=== PATIENT | female | born 1985 | race Asian ===

== ENCOUNTER 2018-08-11 03:50 | Inpatient (IN) | payer OTHER ==
--- NOTE | 2018-08-11 04:47 | PN ---
Progress Note - Progress Note Date of Service: 08/11/18 Note: S: at 40 4/7 weeks c/o UCs that began about 2100 last night. Reports dribbling of fluid and unsure if her water has broken. O: B/P 109/65, P: 85, R: 18, T: 98.4 FHR: baseline 125, moderate variability + accelerations, occasional variable decelerations with UCs UC: q 6-10 min, mild to palpation No LOF with cough, ROM+ collected VE: vertex 2.5/70/-2 A: IUP at 40 4/7 weeks Category II FHR, doubt metabolic acidemia GBS negative Early active labor vs false labor P: Will determine ROM Encouraged position changes, fluids to see if variable decelerations resolve Reassess in 1-2 hours or sooner as needed
--- NOTE | 2018-08-11 05:21 | HP ---
General Information - Reason for Visit at 40 w 4 d with contractions - General Information Maternal Age: 33 Grav: 1 Para: 0 SAB: 0 IEA: 0 Estimated Due Date: 08/07/18 Determined By: LMP Maternal Blood Type and Rh: B Positive - Results this Serology/RPR Result: Non-Reactive Rubella Result: Immune HBsAg Result: Negative HIV Result: Negative GBS Culture Result: Negative Past Medical History Delivery History Comment: No prior delivery history Pertinent Past Medical History: Non-Contributory Pertinent Past Surgical History: See Records Past Surgical History Comment: [place] Teeth Extraction Pertinent Family History: See Records Family History Comment: Mother: Breast Cancer - Antepartal Records Antepartal Records: Reviewed, Uncomplicated Review of Systems Constitutional: Uncomfortable CV Complaint: No Respiratory: Shortness of Breath: No Gastrointestinal: No Nausea/Vomiting, Soft Stool Genitourinary: Leaking Fluid, No Dysuria, No Bleeding Musculoskeletal: No Epigastric Pain, Contractions Neurological: No Headache, No Visual Changes Movement: Normal Exam Allergies/Adverse Reactions: Allergies Penicillins Allergy (Verified 08/11/18 05:14) Hives B/P: 109/65, P: 85, R: 18, T: 98.4 Lab Values - Entire Visit: Laboratory Tests 08/11/18 04:25 Vag Amniotic Fld Detect Positive - Measurements Height: 5 ft 3 in Weight: 153 lb Weight in lbs: 153.744889 Body Mass Index (BMI): 27.1 Pre- Weight: 120 lb Weight Gained This : 33 lbs and 0 ozs - Exam Breast: Breast Exam Deferred CVA: No CVA Tenderness Extremities: No Edema Heart: Normal Rhythm/Heart Sounds HEENT: No Significant Findings Lungs: Clear Bilaterally Reflexes: DTR 2+ Targeted Exam Findings See L&D Outpatient Visit Provider Note for Findings: Yes Estimated Weight: 7.5 lb by raphael's Cervical Exam: 2cm, 3cm Effacement: 70% Station: -2 Presenting Part: Vertex Membrane Status: SROM Amniotic Fluid Evaluation: Positive ROM Plus Bleeding/Discharge: None EFM Findings - External Monitor Findings Baseline Heart Rate: 125 External Monitor Findings: Accelerations Present, Variability Moderate, Baseline Stable External Monitor Findings Comment: occ variable decelerations initially, resolved with position change Contractions: 45-90 Seconds Contraction Frequency: q 6-10 min Assessment/Plan - Assessment A: IUP at 40 4/7 weeks Category II FHR, doubt metabolic acidemia SROM at 2300 on 08/10/18 of clear fluid GBS negative P: Admit to L&D Will monitor labor progress, prefers not to be offered pain medication. Encouraged position changes, tub, rest, and frequent emptying of bladder Reassess in 3-4 hours or sooner as needed Anticipate SVB - Plan Plan: Admit - Anticipate Vaginal Delivery - Date/Time of Admission Date of Admission: 08/11/18 Time of Admission: 05:00
[2018-08-11] MEDS ORDERED: Buffered Lidocaine 1% SYRIN* 1 ML/SYRINGE INTRADERM ONE (06:01)
[2018-08-11] MEDS ORDERED: Lactated Ringers 1000 ML Bag* 1,000 ML IV ONE (06:01)
[2018-08-11] MEDS ORDERED: Lactated Ringers 1000 ML Bag* 1,000 ML IV SCH ×2 (07:00→23:00)
--- NOTE | 2018-08-11 07:53 | PN ---
Progress Note - Progress Note Date of Service: 08/11/18 Note: S: Feels as though UCs have spaced out some, sleeping in between O: B/P: 89/49, P: 74, R: 18, T:98.4 FHR: baseline 130, moderate variability, + accelerations, one variable deceleration and one uniform decel but toco not applied at time of auscultation UCs: Irregular A: IUP at 40 4/7 weeks Category II FHR Inadequate contraction pattern P: Patient in left side-lying position, will monitor FHR and UCs to assess labor and FHR Discussed recommendation to draw labs and initiate IV access, pt declines at this time Reassess in 30-60 mins or sooner as needed
--- NOTE | 2018-08-11 09:15 | PN ---
Progress Note - Progress Note Date of Service: 08/11/18 SOAP: Subjective: Pt reports she is feeling comfortable. Does feel some contractions, but mild and irregular, others she does not feel. Pt with a strong preference to avoid interventions. Declined an IV earlier Objective: FHR exhibiting deep variable/ sometimes borderline late decelerations with most contractions. Baseline 130/ + accels/ moderate variability. UCs 3-8 minutes, 40-90 seconds Had been leaking some clear fluid, none noted recently Afebrile Assessment: 33 year old at 40 4/7 weeks gestation with prelabor rupture of membranes, not in active labor, with Category II tracing suggestive of cord compression. Improves somewhat with repositioning, but does not resolve altogether. Membrane rupture likely suggestive of high leak. Plan: Pt agrees to IV access. Will establish IV and administer IV fluid bolus. If we can get FHR stabilized, will recommend augmentation of labor with Pitocin. If decelerations continue, will consult with .
[2018-08-11 09:20] LABS: ABS Basophils 0 10^3/ul (0-0.2); ABS Eosinophils 0.1 10^3/ul (0-0.6); ABS Lymphocytes 1.3 10^3/ul (1.0-4.8); ABS Monocytes 0.4 10^3/ul (0-0.8); ABS Nucleated RBC 0 10^3/ul; Eosinophil % 0.5 %; Hematocrit 40 % (33-41); Hemoglobin 13.5 g/dL (12.0-16.0); Lymphocyte % 9.8 %; Mean Corpuscular HGB Conc 34 g/dL (31-36); Mean Corpuscular Hemoglobin 32 pg (27-31); Mean Corpuscular Volume 94 fL (80-97); Nucleated Red Blood Cells % 0; Platelet Count 190 10^3/uL (150-450); Red Blood Count 4.24 10^6 /uL (3.70-4.87); Red Cell Distribution Width 14 % (10.5-15); White Blood Count 12.9 10^3/uL (3.5-10.8)
--- NOTE | 2018-08-11 12:07 | PN ---
Progress Note - Progress Note Date of Service: 08/11/18 SOAP: Subjective: Pt reports ctx feel more frequent at this time, but are still quite mild. She is comfortable physically, states she feels more awake. Objective: FHR: Baseline 140, + accelerations, moderate variability, variable and early decelerations with some ctx Ctx 5-11 minutes, mild, about 90 seconds duration BP: 105/68, Temp: 99.3 CBC unremarkable Cervical exam deferred Assessment: FHR still Cat II due to presence of intermittent variable decelerations, but overall picture of FHR is improved since IVF infusion. Still not in active labor , Plan: Discussed options with pt, both at this time, and when I evaluated her earlier. I presented my concerns, including risk of intrauterine infection with prolonged rupture of membranes, as well as concerns about the baby's tolerance of labor, given that the heart rate is already experiencing variable decelerations at this early stage of labor. Positive aspects of the clinical presentation include pt's GBS negative status, absence of signs of chorioamnionitis, and that the FHR tracing displays moderate variability and positive accelerations suggestive of an absence of acidemia. It also appears that the may still have a forebag intact, as she has not had much fluid leakage since SROM yesterday night at 2300. Given the improvement in FHR tracing at this time, my recommendation is to perform cervical examination and evaluate labor progress since prior exam. If, as I suspect given her contraction pattern, she has not made much change in dilation I would recommend initiating low dose Pitocin very carefully, with close observation of its effect on FHR. Another option would be to attempt to perform AROM of the forebag. I counseled Lisbet and her that it may be a difficult balance trying to achieve active labor without causing undue stress to the baby, as baby is already having decelerations prior to onset of active labor, and that if over time we are unable to achieve adequate contractions without overstressing the baby a could be the safest option. At this time , pt's preference is to have lunch, then do a cervical exam to assess labor status. We can further discuss options at that time.
--- NOTE | 2018-08-11 14:43 | PN ---
Progress Note - Progress Note Date of Service: 08/11/18 SOAP: Subjective: Pt feeling some ctx, some periods more increased frequency, some less. and horticultural agent at bedside, supportive. Has been trying use of ball, position changes, shower, and nipple stimulation. Objective: Cervix: 4 cm/ 80%/ -1/ vtx FHR: baseline 145, moderate variability, + accels, no decels at this time UCs: irregular, approx every 4-11 minutes Temp: 99.1 Assessment: Pt has made cervical change since prior exam at 0430. Still not in active labor. No evidence of chorioamnionitis. FHR Category I at this time. Plan: Discussed findings with pt, , and horticultural agent. Counseled that I still recommend augmentation with Pitocin. I was not able to palpate any additional layer of membrane, so would not want to try AROM of forebag at this time. She and her would like some time to discuss options.
--- NOTE | 2018-08-11 17:04 | PN ---
Progress Note - Progress Note Date of Service: 08/11/18 SOAP: Subjective: Pt still feeling ctx intermittently. Continues to decline Pitocin augmentation at this time. and residence supervisor at bedside. Pt states she wishes to try to nap and then may be willing to consider augmentation. Objective: FHR baseline 135, + accels, no decels, moderate variability at this time. Has continued to have intermittent episodes with variable and early decelerations. UCs: unable to trace at this time, intermittent Temp: 99.1 Membranes ruptured 18 hours Assessment: Pt still not in active labor. No evidence of acidemia or chorioamnionitis. Plan: After pt rests for a little while, will discuss options again, and recommend augmentation with Pitocin.
--- NOTE | 2018-08-11 17:53 | PN ---
Progress Note - Progress Note Date of Service: 08/11/18 SOAP: Subjective: Pt continues to decline Pitocin augmentation at this time. She states that she wants to take another nap and eat dinner and then she will consider Pitocin. Objective: FHR baseline 135/ + accels/ moderate variability/ isolated variable decels UCs: difficult to determine Cervical exam deferred Assessment: Pt with prolonged rupture of membranes, no evidence of chorioamnionitis, Cat II / Cat I tracing at different times Plan: Strongly recommended pt consider augmentation with Pitocin at this time. As she is more than 18 hours post membrane rupture the longer she waits the greater the risk of chorioamnionitis and subsequent distress and/ or increased risk of . Pt agrees to try augmentation, but declines to start until after she has had another nap and eaten dinner. Will revisit the topic at that time.
[2018-08-11] MEDS ORDERED: Oxytocin in LR* 20 UNITS/1,000 ML BAG IVPB ONE (19:08)
--- NOTE | 2018-08-11 19:30 | PN ---
Progress Note - Progress Note Date of Service: 08/11/18 SOAP: Subjective: Pt rested, ate dinner, and now feels ready to start Pitocin. Not feeling strong contractions at this time. Objective: FHR baseline 140, moderate variability, + accels, no decelerations at this time UCs: none noted on monitor or while in room Cervical exam deferred Temp: 99.4 Assessment: Pt still not in active labor. Prolonged rupture of membranes, approx 20 hours. No evidence of chorioamnionitis. Plan: Will initiate low dose Pitocin and carefully monitor response to ctx. Consulted with Dr. Pino, who is in agreement with the plan, will be in house. Will consider rechecking cervix in 2 hours or as needed.
[2018-08-11] MEDS ORDERED: Oxytocin in LR* 20 UNITS/1,000 ML BAG IVPB SCH ×2 (20:00→23:00)
[2018-08-11] MEDS ORDERED: ceFOXitin 2 GM IVPREMIX* 2 GM/50 ML BAG ONE (20:45)
[2018-08-11] MEDS ORDERED: Sodium Citrate/Citric Acid* 15 ML UDC ONE (20:45)
[2018-08-11] MEDS ORDERED: Morphine PF AMP (0.5MG/ML)* 5 MG/10 ML AMP ONE (20:56)
[2018-08-11] MEDS ORDERED: Phenylephrine 40 MCG/ML SYRINGE ONE (20:57)
[2018-08-11] MEDS ORDERED: Ondansetron INJ* 2 MG/ML VIAL ONE (21:37)
[2018-08-11] MEDS ORDERED: OXYTOCIN* 10 UNITS/ML 1 ML VIAL ONE (21:37)
[2018-08-11] MEDS ORDERED: fentaNYL* 50 MCG/ML 2 ML VIAL (100 MCG VIAL) IV PRN (21:54)
[2018-08-11] MEDS ORDERED: Naloxone* 0.4 MG/ML 1 ML VIAL IV PRN ×2 (21:54→21:56)
[2018-08-11] MEDS ORDERED: Ketorolac INJ* 30 MG/ML 1 ML VIAL IV PRN (21:54)
[2018-08-11] MEDS ORDERED: Nalbuphine* 10 MG/ML 1 ML VIAL IV PRN (21:56)
[2018-08-11] MEDS ORDERED: oxyCODONE/Acetamin 5/325 MG* TAB PO PRN (21:56)
[2018-08-11] MEDS ORDERED: Naloxone* 2 MG in NS 0.9% 250 ML* 250 ML IV PRN (21:56)
[2018-08-11] MEDS ORDERED: Ondansetron INJ* 2 MG/ML VIAL IV PRN (21:56)
[2018-08-11] MEDS ORDERED: Witch Hazel PAD* JAR TOPICAL PRN (22:22)
[2018-08-11] MEDS ORDERED: Glycerin ADULT SUPP PR PRN (22:22)
[2018-08-11] MEDS ORDERED: Dibucaine 1% 28.35 GM TUBE PR PRN (22:22)
[2018-08-11] MEDS ORDERED: Zolpidem TAB* 5 MG PO PRN (22:22)
[2018-08-11] MEDS: Ketorolac INJ* 30 MG/ML 1 ML VIAL IV PRN (23:34)
[2018-08-12 07:26] LABS: ABS Basophils 0.1 10^3/ul (0-0.2); ABS Eosinophils 0.1 10^3/ul (0-0.6); ABS Lymphocytes 1.4 10^3/ul (1.0-4.8); ABS Monocytes 0.5 10^3/ul (0-0.8); ABS Neutrophils 8.3 10^3/ul (1.5-7.7); ABS Nucleated RBC 0 10^3/ul; Eosinophil % 1.2 %; Hematocrit 28 % (33-41); Hemoglobin 9.7 g/dL (12.0-16.0); Lymphocyte % 13.5 %; Mean Corpuscular HGB Conc 35 g/dL (31-36); Mean Corpuscular Hemoglobin 32 pg (27-31); Mean Corpuscular Volume 93 fL (80-97); Mean Platelet Volume 8.1 fL (7.4-10.4); Nucleated Red Blood Cells % 0; Platelet Count 145 10^3/uL (150-450); Red Blood Count 2.98 10^6 /uL (3.70-4.87); Red Cell Distribution Width 13 % (10.5-15); White Blood Count 10.3 10^3/uL (3.5-10.8)
[2018-08-12] MEDS: Docusate CAP* 100 MG PO SCH ×3 (08:48→21:13)
[2018-08-12] MEDS: Ferrous Gluconate TAB* 324 MG TAB PO SCH ×2 (08:48→21:13)
[2018-08-12] MEDS: Simethicone TAB* 80 MG TAB.CHEW PO SCH ×4 (08:48→21:14)
--- NOTE | 2018-08-12 11:14 | OP ---
AMENDED REPORT NOW INCLUDES DATE OF OPERATION - ESIGNED BEFORE ADJUSTMENT * DATE OF OPERATION: 08/11/18 - ROOM #116 DATE OF : 87 SURGEON: Ye Pino MD METAL MOLDER: Louise Mosley CNM ANESTHESIA: Spinal. PRE-OP DIAGNOSIS: Category 2 tracing remote from delivery. POST-OP DIAGNOSES: Category 2 tracing remote from delivery plus placental insufficiency. OPERATIVE PROCEDURE: Low transverse section. ESTIMATED BLOOD LOSS: 600 cc. SPECIMENS: Include placenta, which was calcified and placental culture. FINDINGS: This is a 33-year-old 1, who presented with ruptured membranes at 40 weeks and 5 days. She started at 2 cm, slowly progressed to 4 cm and occasionally had deep variable decelerations with a slow progress. Decision made to proceed with augmentation with Pitocin and with each strong contraction, baby decel'd into the 60s with slow recovery. The decels would last up to 3 minutes. Pitocin was stopped, she was put on left side and given O2 and IV fluids. These decels persisted even with the Pitocin off and the options of amnioinfusion versus just waiting without Pitocin versus section were discussed with the patient. At that time, decision made to proceed with . At the time of , she had a viable male, Apgars 8 and 9, weight was 6 pounds 11 ounces. Normal-appearing uterus, fallopian tubes , and ovaries. DESCRIPTION OF PROCEDURE: The patient was identified and procedure identified as a low transverse section. The patient was taken to the operating room, prepped and draped in the usual fashion in the left lateral recumbent position under spinal anesthesia. A Pfannenstiel incision made in the abdomen and carried down through fat, fascia, and peritoneum. A transverse incision was made in the lower uterine segment and extended laterally using blunt dissection. The above was delivered through the incision with ease. The cord was doubly clamped and cut and the was handed to the awaiting dry wall nailer. Cord blood was obtained. Placenta delivered spontaneously. The uterus was wiped out with a wet lap sponge. The uterine incision was then closed with 0 Polysorb in a running fashion. A good hemostasis was achieved. A second layer was used to imbricate the first layer. The uterus was placed back in the abdominal cavity. Good hemostasis was achieved with 0 Polysorb [id number] sutures. The peritoneum was then closed using 3-0 Polysorb in a running fashion. Good hemostasis achieved in the subrectus layers. The fascia was closed using 0 Polysorb in a running fashion. Hemostasis achieved in the subcu and the skin was closed with 4-0 Monocryl in a subcuticular fashion. All sponge and instrument counts correct and the patient returned to the recovery room in stable condition. [id number]/[facility] #: [id number] VIANEY
[2018-08-12] MEDS ORDERED: oxyCODONE/Acetamin 5/325 MG* TAB PO PRN ×2 (13:12)
[2018-08-12] MEDS: Ketorolac INJ* 30 MG/ML 1 ML VIAL IV PRN ×2 (15:28→21:14)
[2018-08-12] MEDS: Acetaminophen TAB* 325 MG PO PRN (20:04)
[2018-08-13] MEDS: Ibuprofen TAB* 600 MG PO PRN ×3 (05:01→18:34)
[2018-08-13] MEDS: Acetaminophen TAB* 325 MG PO PRN ×3 (08:32→18:34)
[2018-08-13] MEDS: Docusate CAP* 100 MG PO SCH ×3 (08:32→22:46)
[2018-08-13] MEDS: Ferrous Gluconate TAB* 324 MG TAB PO SCH ×2 (08:32→22:46)
[2018-08-13] MEDS: Simethicone TAB* 80 MG TAB.CHEW PO SCH ×4 (08:33→22:46)
[2018-08-14] MEDS: Ibuprofen TAB* 600 MG PO PRN ×3 (01:12→15:14)
[2018-08-14] MEDS: Docusate CAP* 100 MG PO SCH ×2 (08:10→15:14)
[2018-08-14] MEDS: Ferrous Gluconate TAB* 324 MG TAB PO SCH (08:10)
[2018-08-14] MEDS: Simethicone TAB* 80 MG TAB.CHEW PO SCH ×2 (08:10→12:42)
[2018-08-14 08:32] VITALS: BP 109/72
== END 2018-08-14 18:57 | disposition home or self-care (01) | DRG 788 ==
LOC: MCHOBOUT 03:50 → MCHOB 05:05
PROVIDERS: ADMIT Midwife; ATTEND Obstetrics & Gynecology
PROC: 4A1HXCZ Monitoring of Products of Conception, Cardiac Rate, External Approach (ICD-10-PCS; 2018-08-11)
PROC: 10D00Z1 Extraction of Products of Conception, Low, Open Approach (ICD-10-PCS; principal; 2018-08-11 21:04)
DX: O76 Abnormality in fetal heart rate and rhythm complicating labor and delivery (principal); O36.5130 Maternal care for known or suspected placental insufficiency, third trimester, not applicable or unspecified; O48.0 Post-term pregnancy; O69.2XX0 Labor and delivery complicated by other cord entanglement, with compression, not applicable or unspecified; Z3A.40 40 weeks gestation of pregnancy; Z37.0 Single live birth; O90.81 Anemia of the puerperium; Z88.0 Allergy status to penicillin
CPT/HCPCS: 36415; 84112; 85025; 86850; 86900; 86901; 87070; 87205; 88307; A9270-GY; J0694; J1885; J2405; J2590